=== PATIENT | male | born 1985 | race Caucasian/White ===

== ENCOUNTER 2024-05-19 09:39 | Emergency (ER) | payer SELFPAY ==
[2024-05-19 09:53] VITALS: BP 152/95; PULSE 91; RESP 18; TEMP 36.7; O2SAT 96; BMI 36.9
--- NOTE | 2024-05-19 10:16 | US_ITS ---
WS: [id number] ULTRASOUND EXAMINATION CLINICAL INFORMATION: Pain COMPARISON: None. FINDINGS: TESTES Heterogeneous RIGHT testicle echotexture with hypoechoic testicular bands and septal accentuation. As sociated marked increased vascularity most compatible with orchitis. Recommend follow-up to vladislav n. Increased vascularity LEFT testicle also with heterogeneous echogenicity compatible with orchitis. Color Doppler: Increased vascularity in both testicles RIGHT greater than LEFT suspicious for orchiti s Right testes size: 4.9 cm x 3.1 cm x 3.0 cm. Left testes size: 5.0 cm x 2.9 cm x 3.5 cm. EPIDIDYMIDES Edematous enlarged epididymis bilaterally with increased vascularity compatible with epididymitis Right epididymis size: 3.0 cm x cm x cm. Left epididymis size: 3.8 cm x cm x cm. HYDROCELE None. VARICOCELE None. OTHER FINDINGS None. US/US scrotum [id number] IMPRESSION: 1. Acute RIGHT epididymitis and severe orchitis with heterogeneity in the RIGH T testicle with marked increased vascularity. Recommend interval follow-up to e nsure resolution and also to ensure abscess does not develop 2. Less prominent but suspected LEFT epididymitis and orchitis also with incre ased vascularity and heterogeneous echogenicity. 3. No abscess or fluid collection
[2024-05-19 10:31] VITALS: BP 152/95; PULSE 85; RESP 18; O2SAT 99
--- NOTE | 2024-05-19 10:31 | ED_ITS ---
HPI - Male Genitourinary 2 General: Chief complaint: Urogenital-Male Stated complaint: genital pain Time Seen by Provider: 05/19/24 09:55 History of Present Illness: 38-year-old male presents emergency room complaining of testicular pain. Denies any dysuria. He has been treating with [id number] anti-inflammatories no relief no previous surgery to the testicles or scrotum. No history of trauma or injury to the testicles recently. Denies dysuria urgency or frequency Associated symptoms: Deny dysuria Review of Systems 2 Const: Denies: fever(s) or chills Card: Denies: chest pain Resp: Denies: dyspnea GI: Denies: abdominal pain : Reports: testicular pain; Denies: flank pain, dysuria, urinary frequency or urinary urgency Musc: Denies: neck pain or back pain Skin/Breast: Denies: rash Physical Exam 2 Const: GENERAL APPEARANCE: cooperative and comfortable O RIENTATION/CONSCIOUSNESS: Yes awake, Yes oriented to person, Yes oriented to place and Yes oriented to time HENMT: COMMON NORMALS: normocephalic, atraumatic and hearing grossly normal bilaterally HEAD & SCALP: normocephalic and atraumatic Resp: COMMON NORMALS: normal respiratory effort, No retractions, No use of accessory muscles and clear to auscultation bilaterally AUSCULTATION: clear to auscultation bilaterally Cardio: COMMON NORMALS: regular rate, regular rhythm and No murmurs present (Cardio) RATE: regular rate RHYTHM: regular rhythm GI: COMMON NORMALS: Soft to palpation and No hepatosplenomegaly present A USCULTATION: Yes normoactive bowel sounds PALPATION: Yes Soft to palpation, No Tenderness to palpation present (GI), No Guarding due to palpation present (GI) and Yes No hepatosplenomegaly present Extremity: COMMON NORMALS: normal to inspection, capillary refill normal, no clubbing, cyanosis or edema, no calf tenderness and no pedal edema Neuro: SENSORIUM/ORIENTATION: Yes oriented to person, Yes oriented to place and Yes oriented to time Skin: COMMON NORMALS: no rashes or lesions noted GENERAL SKIN EXAM: no rashes or lesions noted Course 2 Vital Signs: Vital signs: Vital Signs Temperature 98.1 F 05/19/24 09:53 Pulse Rate 85 05/19/24 10:31 Respiratory Rate 18 05/19/24 10:31 Blood Pressure 152/95 05/19/24 10:31 Pulse Oximetry 99 05/19/24 10:31 Oxygen Delivery Me thod Room Air 05/19/24 10:31 MDM - Male Medical Decision Making Treat empirically with ceftriaxone and Zithromax doxycycline for 14 days cultures done. There is no evidence of poor blood flow at this time no evidence of torsion does have epididymitis and orchitis. Will refer to urology Medical Records I reviewed the patient's medical records. Lab Data I reviewed the patient's lab results. 05/19/24 10:27 05/19/24 10:27 Radiology Impressions Scrotum Ultrasound 05/19/24 10:16 IMPRESSION: 1. Acute RIGHT epididymitis and severe orchitis with heterogeneity in the RIGHT testicle with marked increased vascularity. Recommend interval follow-up to ensure resolution and also to ensure abscess does not develop 2. Less prominent but suspected LEFT epididymitis and orchitis also with increased vascularity and heterogeneous echogenicity. 3. No abscess or fluid collection Laboratory Results WBC 9.96 10^3/uL (3.29-11.43) 05/19/24 10:27 RBC 4.95 10^6/uL (3.85-5.65) 05/19/24 10:27 Hgb 15.50 g/dL (11.27-16.99) 05/19/24 10:27 Hct 46.4 % (37-53) 05/19/24 10:27 MCV 93.7 fl (82-101) 05/19/24 10:27 MCH 31.3 pg (27-33) 05/19/24 10:27 MCHC 33.4 g/dL (30-55) 05/19/24 10:27 RDW 12.9 % (12.1-15.1) 05/19/24 10:27 Plt Count 243 10^3/cmm (157-399) 05/19/24 10:27 MPV 11.2 fL (7.4-10.4) H 05/19/24 10:27 Neut % (Auto) 78.8 % 05/19/24 10:27 Lymph % (Auto) 13.2 % 05/19/24 10:27 [place] % (Auto) 6.0 % 05/19/24 10:27 Eos % (Auto) 1.0 % 05/19/24 10:27 Baso % (Auto) 0.7 % 05/19/24 10:27 Neut # (Auto) 7.85 10^3/uL (1.8-7.7) H 05/19/24 10:27 Lymph # (Auto) 1.3 10^3/uL (0.8-4.8) 05/19/24 10:27 [place] # (Auto) 0.6 10^3/uL (0.2-0.9) 05/19/24 10:27 Eos # (Auto) 0.1 10^3/uL (0.0-0.8) 05/19/24 10:27 Baso # (Auto) 0.1 10^3/uL (0.0-0.1) 05/19/24 10:27 Nucleated RBC % (auto) 0 % 05/19/24 10:27 Nucleated RBCs # 0.0 /100WBC 05/19/24 10:27 Sodium 140 mmol/L (136-145) 05/19/24 10:27 Potassium 4.2 mmol/L (3.5-5.1) 05/19/24 10:27 Chloride 108 mmol/L (98-107) H 05/19/24 10:27 Carbon Dioxide 22 mmol/L (22-29) 05/19/24 10:27 Anion Gap 14.2 (5-19) 05/19/24 10:27 BUN 11 mg/dL (6-20) 05/19/24 10:27 Creatinine 0.7 mg/dL (0.7-1.2) 05/19/24 10:27 GFR Calculation 127.6 mL/min (90-130) 05/19/24 10:27 Glucose 109 mg/dL (65-115) 05/19/24 10:27 Calculated Osmolality 290 mOsm/kg (285-295) 05/19/24 10:27 Calcium 8.8 mg/dL (8.5-10.5) 05/19/24 10:27 Total Bilirubin 0.8 mg/dL (0.15-1.2) 05/19/24 10:27 AST 20 U/L (0-40) 05/19/24 10:27 ALT 39 U/L (0-41) 05/19/24 10:27 Alkaline Phosphatase 60 U/L (40-130) 05/19/24 10:27 Total Protein 6.8 g/dL (6.6-8.7) 05/19/24 10:27 Albumin 4.0 g/dL (3.5-5.2) 05/19/24 10:27 Globulin 2.8 g/dL (1.3-4.6) 05/19/24 10:27 Urine Color Dark yellow (Yellow) A 05/19/24 12:27 Urine Appearance Cloudy (CLEAR) A 05/19/24 12:27 Urine pH 5.5 (5-7) 05/19/24 12:27 Ur Specific [place] 1.033 (1.005-1.030) H 05/19/24 12:27 Urine Protein Trace (Negative) A 05/19/24 12:27 Urine Glucose (UA) Negative (Normal) 05/19/24 12:27 Urine Ketones Trace (Negative) 05/19/24 12:27 Urine Blood Negative (Negative) 05/19/24 12:27 Urine Nitrate Negative (Negative) 05/19/24 12:27 Urine Bilirubin 1+ (Negative) H 05/19/24 12:27 Urine Urobilinogen 1.0 mg/dL (Negative) 05/19/24 12:27 Ur Leukocyte Esterase Negative (Negative) 05/19/24 12:27 Urine RBC 0-2 /hpf (0-2) 05/19/24 12:27 Urine WBC 0-5 /hpf (0-5) 05/19/24 12:27 Ur Squamous Epith Cells 0-5 /hpf (0-5) 05/19/24 12:27 Amorphous Sediment Not Reportable 05/19/24 12:27 Urine Bacteria None seen /hpf (NONE) 05/19/24 12:27 Hyaline Casts 1.65 /lpf 05/19/24 12:27 All radiology interpretation(s) finalized by discharge Discharge Plan Discharge Patient Disposition: Home Clinical Impression: Epididymitis, Acute orchitis Condition: Stable Prescriptions: New doxycycline hyclate 100 mg capsule 100 mg PO BID 14 Days Qty: 28 0RF hydrocodone-acetaminophen 5-325 mg tablet 1 tab PO Q6H PRN (Reason: pain) Qty: 10 0RF Discharge Orders: Discharge ED (Routine); Ordered 05/19/24 Ordered By: Domo Phipps Discharge Diet: Usual diet Discharge Activity: Increase activity as tolerated Patient Instructions: Opioid Safety, Pain Management Activity Restrictions/Additional Instructions: Thank you for choosing [facility] for your healthcare needs today. It is very important that you follow up as instructed or that you return to the Emergency Department should you have concerns or if your condition changes or worsens in any way. You were seen today with complaint of testicular pain. Ultrasound showed epididymitis and orchitis (infection of the testicle and the 2 bleeding from the testicle). You are given initial antibiotics emergency room also recommend that you take doxycycline 1 pill twice a day for 14 days. Cultures have been done. Follow-up with your primary care doctor if not improving Stand Alone Forms: Work/School Release Coding Level of Care Code ED Medical Supervisor for [facility]
[2024-05-19 10:34] LABS: Basophils # 0.1 10^3/uL (0.0-0.1); Basophils % 0.7 %; Eosinophils # 0.1 10^3/uL (0.0-0.8); Hematocrit 46.4 % (37-53); Lymphocytes # 1.3 10^3/uL (0.8-4.8); Lymphocytes % 13.2 %; Mean Corpuscular HGB Conc 33.4 g/dL (30-55); Mean Corpuscular Hemoglobin 31.3 pg (27-33); Mean Corpuscular Volume 93.7 fl (82-101); Mean Platelet Volume 11.2 fL (7.4-10.4); Monocytes # 0.6 10^3/uL (0.2-0.9); Neutrophils # 7.85 10^3/uL (1.8-7.7); Neutrophils % 78.8 %; Nucleated Red Blood Cells % 0 %; Platelet Count 243 10^3/cmm (157-399); Red Blood Count 4.95 10^6/uL (3.85-5.65); Red Cell Distribution Width 12.9 % (12.1-15.1); White Blood Count 9.96 10^3/uL (3.29-11.43)
[2024-05-19 10:49] LABS: Alanine Aminotransferase 39 U/L (0-41); Alkaline Phosphatase 60 U/L (40-130); Anion Gap 14.2 (5-19); Aspartate Amino Transferase 20 U/L (0-40); Blood Urea Nitrogen 11 mg/dL (6-20); Calcium 8.8 mg/dL (8.5-10.5); Carbon Dioxide 22 mmol/L (22-29); Chloride 108 mmol/L (98-107); Creatinine Clr Calc Pharmacy 203.7542; Globulin 2.8 g/dL (1.3-4.6); Glomerular Filtration Rate 127.6 mL/min (90-130); Glucose 109 mg/dL (65-115); Osmolality Calculated 290 mOsm/kg (285-295); Potassium 4.2 mmol/L (3.5-5.1); Sodium 140 mmol/L (136-145); Total Bilirubin 0.8 mg/dL (0.15-1.2); Total Protein 6.8 g/dL (6.6-8.7)
[2024-05-19 13:02] LABS: Charge for UA Resulting for Rev
[2024-05-19 13:08] LABS: Bilirubin Urine 1+ (Negative); Blood Urine Negative (Negative); Glucose Urine UA Negative (Normal); Ketones Urine Trace (Negative); Leukocyte Esterase Urine Negative (Negative); Nitrate Urine Negative (Negative); Protein Urine Trace (Negative); Urine Appearance Cloudy (CLEAR); Urine Color Dark Yellow (Yellow); pH Urine 5.5 (5-7)
[2024-05-19 13:15] LABS: Bacteria Urine None Seen /hpf; Hyaline Casts Urine 1.65 /lpf; RBC Urine 0-2 /hpf (0-2); Squamous Epithelial Cell Urine 0-5 /hpf (0-5); WBC Urine 0-5 /hpf (0-5)
[2024-05-19 13:19] LABS: Specific Gravity, Urine 1.033 (1.005-1.030)
[2024-05-19] MEDS: cefTRIAXone 1,000 MG in water for injection-sterile 2.1 ML 999 MG IM (13:36)
[2024-05-19] MEDS: azithromycin 250 mg Tablet 1000 MG PO (13:36)
[2024-05-21 14:28] LABS: Chlamydia Trachomatis RNA TMA NOT DETECTED (NOT DETECTED); Neisseria Gonorrhoeae RNA, TMA NOT DETECTED (NOT DETECTED)
--- NOTE | 2024-05-25 09:25 | DCPLANNER ---
Sent Urology referral to [facility]
== END 2024-05-19 13:40 | disposition home or self-care (01) ==
PROVIDERS: Emergency Provider Family Medicine
DX: N45.3 Epididymo-orchitis (principal)
CPT/HCPCS: 76870; 80053; 81003; 81015; 85025; 87491; 87591; 96372; 99284; J0696; Q0144